=== PATIENT | male | born 1995 | race Caucasian/White ===

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

== ENCOUNTER 2017-04-06 23:15 | Emergency (ER) | payer BC ==
[2017-04-06 23:27] VITALS: BP 131/73
--- NOTE | 2017-04-07 01:41 | ED ---
Complex/Multi-Sys Presentation - HPI Summary HPI Summary: 21M presents with "weird sensation and numbness and tingling in extremities." He states this last a couple seconds and has been occurring the last couple days. He states he get palpitations sometimes with it and feeling of lightheadedness and feels out of it. He denies any history of syncope. He has not family history of sudden cardiac . He has history of anxiety but no other medical conditions. He does not smoke. He has not family history of CAD. He does not have a history of palpitations. He states he is not experiencing any symptoms at the moment. He denies any fever, recent travel, or immobilizations. He states it could be anxiety related. He denies any chest pain or SOB. 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 Denies: Hx Hypertension Sensory History: Denies: Hx Contacts or Glasses, Hx Hearing Aid Opthamlomology History: Denies: Hx Contacts or Glasses Psychiatric History: Reports: Hx Anxiety Denies: Hx Eating Disorder, Hx of Violent Episodes Against Others - Surgical History Surgery Procedure, Year, and Place: Ablation Infectious Disease History: No Infectious Disease History: Denies: Traveled Outside the [place] in Last 30 Days - Family History Known Family History: Positive: Diabetes - Brother Negative: Cardiac Disease - Social History Alcohol Use: Occasionally Hx Substance Use: No Substance Use Type: Reports: None Hx Tobacco Use: No Smoking Status (MU): Never Smoked Tobacco Have You Smoked in the Last Year: No Review of Systems Negative: Fever Positive: Palpitations. Negative: Chest Pain Negative: Shortness Of Breath Positive: Other - tingling in extremities All Other Systems Reviewed And Are Negative: Yes Physical Exam Triage Information Reviewed: Yes Vital Signs On Initial Exam: Initial Vitals Temp Pulse Resp BP Pulse Ox 98.2 F 65 20 131/73 99 04/06/17 23:24 04/06/17 23:24 04/06/17 23:24 04/06/17 23:24 04/06/17 23:24 Vital Signs Reviewed: Yes Appearance: Positive: Well-Appearing Skin: Positive: Warm, Dry Head/Face: Positive: Normal Head/Face Inspection Eyes: Positive: Normal, EOMI, VIVEK, Conjunctiva Clear ENT: Positive: Normal ENT inspection, Pharynx normal, TMs normal Respiratory/Lung Sounds: Positive: Clear to Auscultation, Breath Sounds Present Cardiovascular: Positive: Normal, RRR Abdomen Description: Positive: Nontender, Soft Bowel Sounds: Positive: Present Musculoskeletal: Positive: Normal Neurological: Positive: Sensory/Motor Intact, Alert, Oriented to Person Place, Time, CN Intact II-III, Reflexes Intact - Tato Coma Scale Coma Scale Total: 15 Diagnostics - Vital Signs Vital Signs Temp Pulse Resp BP Pulse Ox 04/06/17 23:24 98.2 F 65 20 131/73 99 - Laboratory Lab Statement: Any lab studies that have been ordered have been reviewed, and results considered in the medical decision making process. - EKG No standard instances Cardiac Rate: Bradycardia EKG Rhythm: Sinus Bradycardia Ectopy: None EKG Interpretation: normal EKG for age with repolization Complex Multi-Symp Course/Dx Course Of Treatment: 21M presents with "weird sensation and numbness and tingling in extremities." He states this last a couple seconds and has been occurring the last couple days. He states he get palpitations sometimes with it and feeling of lightheadedness and feels out of it. He denies any history of syncope. He has not family history of sudden cardiac . He has history of anxiety but no other medical conditions. He does not smoke. He has not family history of CAD. He does not have a history of palpitations. He states he is not experiencing any symptoms at the moment. He denies any fever, recent travel, or immobilizations. He states it could be anxiety related. on exam lungs CTA. heart RRR. reflexes intact. patient appears anxious. got EKG which is normal for age. discussed with patient and patient wants to follow up with [facility] for futher testing. will try atrax as symptoms appear to be anxiety related. patient understands and agrees with plan. - Diagnoses Differential Diagnoses/HQI/PQRI: Other - PVCs, anxiety, lightheadedness Provider Diagnoses: Lightheaded, Palpitations, Anxiety Discharge - Discharge Plan Condition: Good Disposition: HOME Prescriptions: hydrOXYzine HCL TAB* [Atarax 25 MG TAB*] 25 mg PO TID PRN #20 tab PRN Reason: Anxiety [facility] - Additional Instructions: follow up with [facility] Take hydroxyzine up to four tablets daily Return to ED if develop any new or worsening symptoms
== END 2017-04-07 01:45 | disposition home or self-care (01) ==
LOC: ED 23:15
DX: H81.49 Vertigo of central origin, unspecified ear (principal); R00.2 Palpitations; F41.9 Anxiety disorder, unspecified; R00.1 Bradycardia, unspecified
CPT/HCPCS: 93005; 99281

== ENCOUNTER → 2017-04-16 17:44 | Emergency (ER) | payer BC ==
[~2017-04-16 17:44] MED LIST: Charcoal ACTIVATED* 25 GM/120 ML BTL PO ONE; NS 0.9% 1000 ML* 1,000 ML IV ONE; Ondansetron INJ* 2 MG/ML VIAL IV ONE
[2017-04-16 18:47] LABS: Hematocrit 41 % (42-52); Hemoglobin 14.1 g/dl (14.0-18.0); Mean Corpuscular HGB Conc 35 g/dl (31-36); Mean Corpuscular Hemoglobin 30 pg (27-31); Mean Corpuscular Volume 85 fL (80-94); Mean Platelet Volume 7 um3 (7.4-10.4); Red Blood Count 4.78 10^6/ul (4.0-5.4); Red Cell Distribution Width 13 % (10.5-15); White Blood Count 8.6 10^3/ul (3.5-10.8)
[2017-04-16 19:04] LABS: ALT 13 U/L (7-52); AST 15 U/L (13-39); Albumin 4.2 g/dL (3.2-5.2); Alkaline Phosphatase 50 U/L (34-104); Anion Gap 5 mmol/L (2-11); BUN/Creatinine Ratio 9.1 (8-20); Blood Urea Nitrogen 7 mg/dL (6-24); CO2 Carbon Dioxide 28 mmol/L (22-32); Calcium 9.4 mg/dL (8.6-10.3); Chloride 104 mmol/L (101-111); Creatine Kinase 63 U/L (10-223); EGFR African American 167.4 (>60); EGFR Non-African American 130.1 (>60); Globulin 2.8 g/dL (2-4); Glucose 95 mg/dL (70-100); Potassium 3.6 mmol/L (3.5-5.0); Sodium 137 mmol/L (133-145)
[2017-04-16 19:23] LABS: Acetaminophen < 15 mcg/mL; Alcohol < 10 mg/dL (<10); Salicylate < 2.50 mg/dL (<30)
[2017-04-16 19:37] LABS: TSH (Thyroid Stimulating Horm) 0.93 mcIU/mL (0.34-5.60)
[2017-04-16 20:32] LABS: Urine Bilirubin Negative (Negative); Urine Glucose Negative (Negative); Urine Nitrite Negative (Negative)
[2017-04-16 20:44] LABS: Benzodiazepine Urine Screen None Detected (None Detect)
--- NOTE | 2017-04-16 23:40 | ED ---
James Tan Thomas, scribed for Bhaskar Spann MD on 04/16/17 at 1825 . Complex/Multi-Sys Presentation - HPI Summary HPI Summary: The pt is a 21 y/o M BIBA after taking fifteen 50-milligram tablets of Trazodone. In the ED, he c/o nausea, generalized malaise, and sleepiness. Before the overdose, he was anxious. He induced vomiting and vomited up an unknown amount of pills. When asked if he has suicidal ideation, he responds with "I want to go to sleep." He is on Effexor and took his normal dose this morning. Pt denies abd pain. - History Of Current Complaint Chief Complaint: EDOverdose Time Seen by Provider: 04/16/17 18:04 Hx Obtained From: Patient Onset/Duration: Lasting Hours - overdose earlier today, Still Present Timing: Constant Aggravating Factor(s): None. Alleviating Factor(s): None. 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 Denies: Hx Hypertension Sensory History: Denies: Hx Contacts or Glasses, Hx Hearing Aid Opthamlomology History: Denies: Hx Contacts or Glasses Psychiatric History: Reports: Hx Anxiety Denies: Hx Eating Disorder, Hx of Violent Episodes Against Others - Surgical History Surgery Procedure, Year, and Place: Ablation Infectious Disease History: No Infectious Disease History: Denies: Traveled Outside the [place] in Last 30 Days - Family History Known Family History: Positive: Diabetes - Brother Negative: Cardiac Disease - Social History Alcohol Use: Occasionally Hx Substance Use: No Substance Use Type: Reports: None Hx Tobacco Use: No Smoking Status (MU): Never Smoked Tobacco Have You Smoked in the Last Year: No Review of Systems Positive: Other - Generalized malaise. Negative: Fever Positive: Vomiting, Nausea. Negative: Abdominal Pain Neurological: Other - Sleepiness Psychological: Other - Overdose, possible SI Positive: Anxious All Other Systems Reviewed And Are Negative: Yes Physical Exam - Summary Physical Exam Summary: General: well-appearing, no pain distress Skin: warm, color reflects adequate perfusion, dry Head: normal Eyes: Pupils are 3mm and reactive. EOMI ENT: normal Neck: supple, nontender Respiratory: CTA, breath sounds present Cardiovascular: RRR Abdomen: soft, nontender Bowel: present Musculoskeletal: normal, strength/ROM intact Neurological: sensory/motor intact. He is mildly tired but awake, alert, and appropriate. Psychological: affect/mood appropriate Triage Information Reviewed: Yes Vital Signs On Initial Exam: Initial Vitals Temp Pulse Resp BP Pulse Ox 97.9 F 67 16 114/59 97 04/16/17 18:05 04/16/17 18:05 04/16/17 18:05 04/16/17 18:05 04/16/17 18:05 Vital Signs Reviewed: Yes Diagnostics - Vital Signs Vital Signs Temp Pulse Resp BP Pulse Ox 04/16/17 18:08 64 15 97 04/16/17 18:05 97.9 F 67 16 114/59 97 - Laboratory Lab Results: Lab Results 04/16/17 04/16/17 04/16/17 Range/Units 18:35 18:35 18:35 WBC 8.6 (3.5-10.8) 10^3/ul RBC 4.78 (4.0-5.4) 10^6/ul Hgb 14.1 (14.0-18.0) g/dl Hct 41 L (42-52) % MCV 85 (80-94) fL MCH 30 (27-31) pg MCHC 35 (31-36) g/dl RDW 13 (10.5-15) % Plt Count 212 (150-450) 10^3/ul MPV 7 L (7.4-10.4) um3 Neut % (Auto) 76.8 (38-83) % Lymph % (Auto) 13.4 L (25-47) % Letcher % (Auto) 9.6 H (1-9) % Eos % (Auto) 0 (0-6) % Baso % (Auto) 0.2 (0-2) % Absolute Neuts (auto) 6.6 (1.5-7.7) 10^3/ul Absolute Lymphs (auto) 1.1 (1.0-4.8) 10^3/ul Absolute Monos (auto) 0.8 (0-0.8) 10^3/ul Absolute Eos (auto) 0 (0-0.6) 10^3/ul Absolute Basos (auto) 0 (0-0.2) 10^3/ul Absolute Nucleated RBC 0 10^3/ul Nucleated RBC % 0 Sodium 137 (133-145) mmol/L Potassium 3.6 (3.5-5.0) mmol/L Chloride 104 (101-111) mmol/L Carbon Dioxide 28 (22-32) mmol/L Anion Gap 5 (2-11) mmol/L BUN 7 (6-24) mg/dL Creatinine 0.77 (0.67-1.17) mg/dL Est GFR ( Amer) 167.4 (>60) Est GFR (Non-Af Amer) 130.1 (>60) BUN/Creatinine Ratio 9.1 (8-20) Glucose 95 (70-100) mg/dL Lactic Acid 0.7 (0.5-2.0) mmol/L Calcium 9.4 (8.6-10.3) mg/dL Total Bilirubin 0.50 (0.2-1.0) mg/dL AST 15 (13-39) U/L ALT 13 (7-52) U/L Alkaline Phosphatase 50 (34-104) U/L Total Creatine Kinase 63 (10-223) U/L Total Protein 7.0 (6.4-8.9) g/dL Albumin 4.2 (3.2-5.2) g/dL Globulin 2.8 (2-4) g/dL Albumin/Globulin Ratio 1.5 (1-3) TSH 0.93 (0.34-5.60) mcIU/mL Urine Color Urine Appearance Urine pH (5-9) Ur Specific Keiser (1.010-1.030) Urine Protein (Negative) Urine Ketones (Negative) Urine Blood (Negative) Urine Nitrate (Negative) Urine Bilirubin (Negative) Urine Urobilinogen (Negative) Ur Leukocyte Esterase (Negative) Urine Glucose (Negative) Salicylates < 2.50 (<30) mg/dL Urine Opiates Screen (None Detect) Acetaminophen < 15 mcg/mL Ur Barbiturates Screen (None Detect) Ur Phencyclidine Scrn (None Detect) Ur Amphetamines Screen (None Detect) U Benzodiazepines Scrn (None Detect) Urine Cocaine Screen (None Detect) U Cannabinoids Screen (None Detect) Serum Alcohol < 10 (<10) mg/dL 04/16/17 04/16/17 Range/Units 20:15 20:15 WBC (3.5-10.8) 10^3/ul RBC (4.0-5.4) 10^6/ul Hgb (14.0-18.0) g/dl Hct (42-52) % MCV (80-94) fL MCH (27-31) pg MCHC (31-36) g/dl RDW (10.5-15) % Plt Count (150-450) 10^3/ul MPV (7.4-10.4) um3 Neut % (Auto) (38-83) % Lymph % (Auto) (25-47) % Letcher % (Auto) (1-9) % Eos % (Auto) (0-6) % Baso % (Auto) (0-2) % Absolute Neuts (auto) (1.5-7.7) 10^3/ul Absolute Lymphs (auto) (1.0-4.8) 10^3/ul Absolute Monos (auto) (0-0.8) 10^3/ul Absolute Eos (auto) (0-0.6) 10^3/ul Absolute Basos (auto) (0-0.2) 10^3/ul Absolute Nucleated RBC 10^3/ul Nucleated RBC % Sodium (133-145) mmol/L Potassium (3.5-5.0) mmol/L Chloride (101-111) mmol/L Carbon Dioxide (22-32) mmol/L Anion Gap (2-11) mmol/L BUN (6-24) mg/dL Creatinine (0.67-1.17) mg/dL Est GFR ( Amer) (>60) Est GFR (Non-Af Amer) (>60) BUN/Creatinine Ratio (8-20) Glucose (70-100) mg/dL Lactic Acid (0.5-2.0) mmol/L Calcium (8.6-10.3) mg/dL Total Bilirubin (0.2-1.0) mg/dL AST (13-39) U/L ALT (7-52) U/L Alkaline Phosphatase (34-104) U/L Total Creatine Kinase (10-223) U/L Total Protein (6.4-8.9) g/dL Albumin (3.2-5.2) g/dL Globulin (2-4) g/dL Albumin/Globulin Ratio (1-3) TSH (0.34-5.60) mcIU/mL Urine Color Straw Urine Appearance Clear Urine pH 7.0 (5-9) Ur Specific Keiser 1.005 L (1.010-1.030) Urine Protein Negative (Negative) Urine Ketones Negative (Negative) Urine Blood Negative (Negative) Urine Nitrate Negative (Negative) Urine Bilirubin Negative (Negative) Urine Urobilinogen Negative (Negative) Ur Leukocyte Esterase Negative (Negative) Urine Glucose Negative (Negative) Salicylates (<30) mg/dL Urine Opiates Screen None detected (None Detect) Acetaminophen mcg/mL Ur Barbiturates Screen None detected (None Detect) Ur Phencyclidine Scrn None detected (None Detect) Ur Amphetamines Screen None detected (None Detect) U Benzodiazepines Scrn None detected (None Detect) Urine Cocaine Screen None detected (None Detect) U Cannabinoids Screen None detected (None Detect) Serum Alcohol (<10) mg/dL Result Diagrams: 04/16/17 18:35 04/16/17 18:35 Lab Statement: Any lab studies that have been ordered have been reviewed, and results considered in the medical decision making process. - EKG 18:21 Cardiac Rate: Bradycardia - 58 BPM EKG Rhythm: Sinus Bradycardia EKG Interpretation: Concave up ST elevations in anterior leads. No ectopy. Complex Multi-Symp Course/Dx Course Of Treatment: MHE pending after 6 hour medical clearance at shift change. No critical care time. - Diagnoses Provider Diagnoses: Overdose, Mental health problem Discharge - Discharge Plan Condition: Stable Disposition: OTHER Discharge Disposition Comment: . [facility] - The documentation as recorded by the James quick Thomas accurately reflects the service I personally performed and the decisions made by me, Bhaskar Spann MD.
--- NOTE | 2017-04-17 06:52 | PN ---
Ayse Tan Emily, scribed for Han Epperson on 04/17/17 at 0650 . Progress Note - Progress Note Date of Service: 04/17/17 Note: SIGN-OFF FROM DR. AMOR UPON SHIFT CHANGE DIAGNOSIS AND DISPOSITION: Pt is diagnosed with depression. Pt is stable for discharge home. Pt is agreeable with this plan. The documentation as recorded by the Ayse quick Emily accurately reflects the service I personally performed and the decisions made by Zhou maynard Emmanuel.
[2017-04-17 08:20] VITALS: BP 115/66
== END ==
LOC: ED 17:44
DX: T43.212A Poisoning by selective serotonin and norepinephrine reuptake inhibitors, intentional self-harm, initial encounter (principal); Y92.9 Unspecified place or not applicable; I49.3 Ventricular premature depolarization; F41.9 Anxiety disorder, unspecified; F32.9 Major depressive disorder, single episode, unspecified
CPT/HCPCS: 36415; 80053; 80307; 80320; 80329; 81003; 82550; 83605; 84443; 85025; 93005; 96360; 96374; 99285; A9270-GY; G0480; J2405